=== PATIENT | female | born 1995 ===

== ENCOUNTER → 2024-04-12 07:27 | Outpatient (CLI) | payer OTHER, SELFPAY ==
--- NOTE | 2024-04-12 07:28 | DI.US.S_ITS ---
PROCEDURE: US PELVIC COMPLETE INDICATIONS: Irregular bleeding TECHNIQUE: Real-time scanning was performed of the pelvic organs, with image documentation. Additional endovaginal scanning was necessary due to incomplete visualization of the adnexal and endometrial structures by transabdominal scanning. COMPARISON: None. FINDINGS: Uterus: Uterus is anteverted and normal in size at 6.4 x 4.4 x 3.1 cm. The myometrium is homogeneous. The endometrium measures two mm combined thickness. The cervix appears normal. Normal color Doppler imaging throughout the uterus. No myometrial masses. Ovaries: The right ovary measures 3.2 x 2.3 x 1.9 cm, with a calculated ovarian volume of 7.3 cc. The left ovary measures 3.0 x 2.1 x 1.7 cm, with a calculated ovarian volume of 5.6 cc. The ovaries have a normal sonographic appearance. There are several follicles bilaterally, greater than 12. No dominant follicle. No adnexal masses are seen. Other: No pathologic free abdominal or pelvic fluid. IMPRESSION: Although the ovaries are normal size, there are greater than 12 follicles bilaterally which can be physiologic, or in the setting of hyperandrogenism, can indicate PCOS. Normal uterine morphology with a thin endometrium. We strive to produce accurate, complete, and clear reports of imaging services. To assist us in improving patient care, this report was composed using standard report templates and voice recognition software. Therefore, it may contain abnormal punctuation, insertions and/or omissions. Occasional wrong-word or sound-alike substitutions may occur. Though we review the report and make efforts to correct it, we do recommend that the report be read carefully in proper context to recognize any text inaccuracies. Dictated by: Andreina Lara M.D. on 04/12/2024 at 13:24 Approved by: Andreina Lara M.D. on 04/12/2024 at 13:27
== END ==
PROVIDERS: Referring Provider Student in an Organized Health Care Education/Training Program; Visit Provider Student in an Organized Health Care Education/Training Program
DX: N92.6 Irregular menstruation, unspecified (principal)
CPT/HCPCS: 76830; 76856

== ENCOUNTER → 2025-01-22 07:36 | Outpatient (CLI) | payer OTHER, SELFPAY ==
[2025-02-03 03:39] LABS: Percent Free Testosterone 4.00 % (0.50-2.80)
== END ==
PROVIDERS: Referring Provider Student in an Organized Health Care Education/Training Program; Visit Provider Student in an Organized Health Care Education/Training Program
DX: E28.2 Polycystic ovarian syndrome (principal)
CPT/HCPCS: 36415; 82533; 82627; 84402; 84403

== ENCOUNTER → 2025-04-17 07:55 | Outpatient (CLI) | payer OTHER, SELFPAY ==
[2025-04-17 15:01] LABS: Urine N gonorrhoeae NOT DETECTED
[2025-04-17 15:04] LABS: Urine Chlamydia NOT DETECTED
== END ==
PROVIDERS: Visit Provider Obstetrics & Gynecology
DX: R82.998 Other abnormal findings in urine (principal); Z11.3 Encounter for screening for infections with a predominantly sexual mode of transmission
CPT/HCPCS: 87086; 87491; 87591

== ENCOUNTER → 2025-04-17 12:20 | Outpatient (CLI) | payer OTHER, SELFPAY ==
[2025-04-18 15:52] LABS: Hepatitis B Surface Antigen NEGATIVE s/c (NEGATIVE)
[2025-04-18 16:14] LABS: HIV 1 & 2 Ab/Ag 4th Gen Combo NEGATIVE (NEGATIVE); Hep C Virus Ab w/Reflex Quant NEGATIVE s/c (NEGATIVE)
== END ==
PROVIDERS: Referring Provider Obstetrics & Gynecology; Visit Provider Obstetrics & Gynecology
DX: Z11.3 Encounter for screening for infections with a predominantly sexual mode of transmission (principal)
CPT/HCPCS: 36415; 86592; 86803; 87340; 87389